=== PATIENT | male | born 1935 | race Caucasian/White ===

== ENCOUNTER 2020-10-03 09:37 | Outpatient (RCR) | payer MEDICARE, BC, SELFPAY ==
[2016-07-26 12:43] VITALS: BMI 31.7
== END 2020-10-03 23:59 ==
LOC: IMMUN 09:37
PROVIDERS: Visit Provider Family Medicine
DX: Z23 Encounter for immunization (principal)
CPT/HCPCS: 0011A; 0012A; 91301

== ENCOUNTER → 2023-03-30 | Outpatient (CLI) | payer OTHER, SELFPAY ==
--- NOTE | 2023-03-30 13:53 | CT_ITS ---
INDICATION: AORTIC ANEURYSM EXAMINATION: CT CHEST WITHOUT CONTRAST - CT Chest W/O Contrast Injection TECHNIQUE: Helically acquired images were obtained of the chest. A radiation dose optimization technique was used for this scan. Sagittal coronal reformatted images are performed. IV Contrast dosage and agent: None. COMPARISON: None. FINDINGS: LUNGS, PLEURA AND LARGE AIRWAYS: There is no focal consolidation pleural effusion pulmonary edema or pneumothorax. There is minimal right lower lobe atelectasis. No pleural effusion or thickening. No pneumothorax. THYROID: No thyroid lesions. HEART AND PERICARDIUM: There is mild cardiac enlargement. There is trace coronary calcification. No pericardial effusion. CORONARY ARTERIES: Coronary artery calcification is seen. VESSELS: The ascending thoracic aorta measures 4 x 4.3 cm and is tortuous. The descending thoracic aorta measures 3.2 x 2.4 cm. MEDIASTINUM AND ERICH: There are coarse calcifications within the AP window and in the left hilum. Aorta is tortuous as it enters the hiatus. Esophagus is unremarkable. No hiatal hernia. UPPER ABDOMEN: There is a visualized 3 mm gallstone. There is calcification within the spleen compatible granulomatous disease. There is a fatty infiltrated atrophied appearance of the pancreatic tissue. BONES: There is multilevel degenerative change within the thoracolumbar spine. There is multilevel disc space narrowing osteophyte formation. CT/Chest without Contrast IMPRESSION: Nonspecific lower lobe atelectasis. Mild aneurysmal dilatation of the ascending thoracic aorta measuring 4.4 x 4.3 cm. Minimal coronary calcification. Evidence of old granulomatous disease. Partially visualized cholelithiasis. Electronically Signed: Shazia Vivar MD at 1:21 EDT ,
== END | disposition home or self-care (01) ==
LOC: CT 13:47
DX: I71.9 Aortic aneurysm of unspecified site, without rupture (principal)
CPT/HCPCS: 71250

== ENCOUNTER → 2024-04-02 | Outpatient (CLI) | payer OTHER, SELFPAY ==
--- NOTE | 2024-04-02 13:09 | CT_ITS ---
STUDY: CT CHEST WITHOUT CONTRAST REASON FOR EXAM: Male, 88 years old. SCREENING THORACIC AORTIC ANEURYSM RADIATION DOSAGE (If Supplied By Facility): CTDIvol = ( 16.95 ) mGy, DLP = ( 656.49 ) mGycm TECHNIQUE: Transaxial imaging was performed without the administration of intravenous contrast material. Multiplanar coronal and sagittal images were reformatted. Individualized dose optimization techniques were used for this CT. COMPARISON: Comparison is made with prior study dated March 30, 2023. FINDINGS: CHEST Minimal scarring at the right lung base. There is no demonstrated pleural abnormality. There are calcifications of the coronary arteries. Calcified lymph nodes in the aortopulmonary window. Calcified left hilar lymph nodes. Normal unenhanced pulmonary arteries. The root of the ascending thoracic aorta measures 46.5 mm. This has increased slightly as compared to prior study. Atherosclerotic plaque formation of the aortic arch. There are multi-level degenerative changes of the thoracic spine. Calcified splenic granulomas. Contracted gallbladder. CT/Chest without Contrast IMPRESSION: The root of the ascending thoracic aorta measures 46.5 mm. This has progressed slightly as compared to prior study. Electronically Signed: Dereje Telles MD at 14:59 EDT ,
== END | disposition home or self-care (01) ==
LOC: CT 13:07
DX: I71.20 Thoracic aortic aneurysm, without rupture, unspecified (principal)
CPT/HCPCS: 71250

== ENCOUNTER 2024-08-28 13:38 | Inpatient (IN) | payer OTHER, SELFPAY ==
[2024-08-28] VITALS (8 sets, daily range): BP systolic 145–176; BP diastolic 91–103; PULSE 58–74; RESP 16–18; TEMP 35.7–36.8; O2SAT 93–95; BMI 33.0; BMI 31.8
--- NOTE | 2024-08-28 13:49 | CT_ITS ---
We are attempting to reach an attending provider to discuss findings. An addendum with communication details will be sent when the communication is complete. EXAM: CT HEAD WITHOUT INTRAVENOUS CONTRAST CLINICAL INDICATION: Neuro deficit, acute, stroke suspected TECHNIQUE: Multiple axial images were obtained of the head without intravenous contrast. This CT exam was performed using one or more of the following dose reduction techniques: automated exposure control, adjustment of the mA and/or kV according to patient size, and/or use of iterative reconstruction technique. RADIATION DOSE: CTDIvol = 47.06 mGy, DLP = 943.26 mGy-cm COMPARISON: No relevant prior studies available. FINDINGS: BRAIN AND EXTRA-AXIAL SPACES: Unremarkable. No intra- or extra-axial hemorrhage. No evidence of acute infarct. No intracranial mass or mass effect. There is preservation of the galindo/white matter interface. Posterior fossa structures are unremarkable. Ventricles are appropriate for age. No hydrocephalus. Basal cisterns are patent. BONES/JOINTS: Unremarkable. No discrete lytic or blastic abnormalities. SINUSES: Unremarkable as visualized. Clear. MASTOID AIR CELLS: Unremarkable. Clear. ORBITS: Visualized globes, extraocular muscles, optic nerves and retrobulbar fat appear unremarkable. CT/STROKE Brain/Head without Cont IMPRESSION: 1. No CT evidence of intracranial bleeding, acute ischemic infarct or acute intracranial abnormality at this time. 2. Total ASPECTS score: 10/10. Electronically Signed: Deric Lockwood MD at 14:02 EST ,
--- NOTE | 2024-08-28 13:49 | EKG12_ITS ---
Test Reason : STORKE ALERT Blood Pressure : */* mmHG Vent. Rate : 74 BPM Atrial Rate : 74 BPM P-R Int : 152 ms QRS Dur : 114 ms QT Int : 438 ms P-R-T Axes : 51 65 57 degrees QTcB Int : 486 ms Sinus rhythm with Premature atrial complexes Incomplete right bundle branch block Prolonged QT Abnormal ECG Confirmed by RICHAR CHE, ANAMIKA ([id number]), sports editor MAXIM DOSHI ([id number]) on 08/30/2024 2:16:04 PM Referred By: Confirmed By: ANAMIKA MCQUEEN MD
--- NOTE | 2024-08-28 13:50 | CT_ITS ---
We are attempting to reach an attending provider to discuss findings. An addendum with communication details will be sent when the communication is complete. STUDY: CTA HEAD AND NECK WITH CONTRAST REASON FOR EXAM: Male, 88 years old. Neuro deficit, acute, stroke suspected RADIATION DOSAGE (If Supplied By Facility): CTDIvol = ( 22.44 ) mGy, DLP = ( 963.36 ) mGycm TECHNIQUE: CT angiography was performed with a multi-detector CT scanner. Data acquisition was obtained from the skull base through the vertex following intravenous administration of 100 mL of Isovue-370. MIP images were reconstructed from the axial data set. Post-processing of the angiographic images was performed, with multiplanar reformation and 3D reconstruction. Individualized dose optimization techniques were used for this CT. The protocol utilizes one or more of the following dose reduction techniques: automated exposure control, adjustment of mA and/or kV according to patient size, and/or use of iterative reconstruction technique. COMPARISON: No relevant priors. FINDINGS: Normal bilateral petrous carotid arteries. Normal right cavernous carotid artery with a normal supraclinoid bifurcation. Normal left cavernous carotid artery with a normal supraclinoid bifurcation. Normal right A1 segment of the anterior cerebral artery. Normal left A1 segment of the anterior cerebral artery. Normal intact anterior communicating artery (ACOM). Normal bilateral A2 segments of the anterior cerebral arteries. Normal right M1 and M2 segments of the middle cerebral arteries, with a normal M1 bifurcation. Normal left M1 and M2 segments of the middle cerebral arteries, with a normal M1 bifurcation. Normal right posterior communicating artery (PCOM). origin of the left HALL MANAGER off the left internal carotid artery rather than a widely patent left posterior communicating artery (PCOM). Normal bilateral vertebral arteries. Right vertebral artery is markedly hypoplastic and terminates directly into the right PICA (posterior inferior cerebellar artery). Normal basilar artery with a normal basilar bifurcation. The visualized bilateral superior cerebellar (SCA) arteries are normal. Hypoplastic right P1 segment. Developmentally absent left P1 segment. Normal bilateral P2 and visualized P3 segments of the posterior cerebral arteries. There is no demonstrated aneurysm of the kash[place] of [place]. There is no demonstrated abnormality of the visualized brain. AORTIC ARCH: Normal visualized aortic arch. Normal origins of the brachiocephalic, left common carotid, and left subclavian arteries. RIGHT CAROTID ARTERIES: Normal right common carotid artery (CCA). Normal right carotid bulb. Normal origin of the right internal carotid (ICA) artery without a hemodynamically significant stenosis. Normal visualized cervical portion of the right internal carotid artery. Normal origin of the right external carotid artery (ECA). LEFT CAROTID ARTERIES: Normal left common carotid artery (CCA). Normal left carotid bulb. Normal origin of the left internal carotid (ICA) artery without a hemodynamically significant stenosis. Normal visualized cervical portion of the left internal carotid artery. Normal origin of the left external carotid artery (ECA). VERTEBRAL ARTERIES: Normal bilateral vertebral arteries. Hypoplastic right vertebral artery terminates directly into the right PICA. CT/STROKE CTA Head AND Neck W/Con IMPRESSION: Normal CTA Head and neck with contrast. Electronically Signed: Deric Lockwood MD at 14:18 EST ,
--- NOTE | 2024-08-28 13:51 | ED.VIS.STROK ---
HPI History of Present Illness Chief Complaint: Dizziness Informant: patient Narrative Narrative: 88-year-old male presenting to triage with dizziness that feels like spinning along with some nausea and some fuzzy vision intermittently but no vision loss that started after getting up this morning, after he ate breakfast, he estimates around 8 AM, he was fine as he awoke and got out of bed. Denies any recent illness. Denies recent injury or fall. Denies a major issue with walking but a little off he states. No earache or tinnitus. No headache. PFSH PFS Medical History (Updated 08/28/24 @ 14:43 by Galilea Mccallum) Non-smoker Stroke/cerebrovascular accident Prostate atrophy Home Medications ?Medication ?Instructions ?Recorded ?Last Taken ?Type tamsulosin 0.4 mg capsule 0.4 mg PO DAILY 07/15/15 Unknown History rivaroxaban 10 mg tablet (Xarelto) 10 mg PO DAILY@0600 ##15 07/28/16 Unknown Rx cholecalciferol (vitamin D3) 25 25 mcg PO DAILY 08/28/24 Unknown History mcg (1,000 unit) capsule (Vitamin D3) Allergy/AdvReac Type Severity Reaction Status Date / Time cephalexin Allergy Unknown Verified 08/28/24 13:39 ibuprofen Allergy Other Verified 08/28/24 13:39 Surgical History (Updated 08/28/24 @ 14:03 by Noemy Baugh) History of hip replacement History of knee replacement Social History Smoking Status: Never smoker ROS ROS ED Constitutional Constitutional ED: Denies chills or fever(s) Eyes Eyes: Reports change in vision bilateral (See HPI, a little fuzzy/blurry at times but no vision loss); Denies diplopia ENT ENT ED: Reports dizziness; Denies ear pain, rhinorrhea or sore throat Cardiovascular Cardiovascular: Denies chest pain or palpitations Respiratory/Chest Respiratory/Chest: Denies cough or dyspnea Gastrointestinal Gastrointestinal: Reports nausea; Denies abdominal pain, diarrhea or vomiting Genitourinary Genitourinary ED: Denies dysuria or hematuria Musculoskeletal Musculoskeletal: Denies back pain or neck pain Integumentary Denies abscess or rash Neurologic Neurologic: Reports as per HPI and dizziness; Denies headache(s), paresthesias or weakness Psychiatric Psychiatric: Denies anxiety or suicidal thoughts EXAM Physical Exam Const Vital Signs: 08/28/24 13:39 08/28/24 13:49 08/28/24 14:09 Temperature 96.3 F L Temperature Source Temporal Pulse Rate 74 72 Respiratory Rate 18 18 Blood Pressure 172/100 H 176/103 H Blood Pressure Mean 124 127 Pulse Ox 95 93 Oxygen Delivery Method Room Air Room Air Room Air 08/28/24 14:19 Temperature Temperature Source Pulse Rate 72 Respiratory Rate 16 Blood Pressure 172/103 H Blood Pressure Mean 126 Pulse Ox 94 Oxygen Delivery Method Room Air Positive well nourished and well developed General Appearance ED: well developed and NAD HEENT Reports moist mucous membranes normocephalic and atraumatic Eyes PERRL and EOMs intact bilaterally Neck full ROM and supple Resp normal respiratory effort and clear to auscultation bilaterally Cardio regular rate and regular rhythm GI non-tender and non-distended Auscultation: normoactive bowel sounds Palpation: soft Back/Spine no CVA tenderness General Back: other FROM Extremity normal to inspection General Extremety ED: Negative for edema, pulses abnormal or tenderness General Extremity: Negative for edema or pulses abnormal Neuro oriented x3, CN's II-XII intact bilaterally and no sensory deficits noted Neuro Narrative: Normal imvyhp-ls-uqri and drfp-zx-bbry bilaterally. No focal deficits. Normal speech. See a NIHSS which is 0. Skew test is negative. Jolt/head impulse test is difficult to interpret, he seems to have a catch-up saccade, however the patient has trouble relaxing his head and neck to allow me to do the movements passively. There is no direction-changing nystagmus. Sensorium / Orientation: awake and alert Motor Exam: strength 5/5 throughout Psych mental status grossly normal Skin no rashes or lesions noted and no wounds NIHSS NIHSS Initial: 1a Level of Consciousness: 0 1b LOC Questions (Score 2 if aphasic/stupor): 0 1c LOC Commands (Only score 1st attempt): 0 2 Best Gaze (If aphasic, use reflexive mvmts.): 0 3 Visual: 0 4 Facial Palsy: 0 5 Motor Arm Right (UN = amputation/fusion): 0 5 Motor Arm Left: 0 6 Motor Leg Right: 0 6 Motor Leg Left: 0 7 Limb ataxia (Only + if out of proportion): 0 8 Sensory (Aphasia/stupor=0 or 1, coma=2): 0 9 Best Language: 0 10 Dysarthria (mute, coma=2, intubated=UN): 0 11 Extinction and Inattention (only scored if +): 0 Total Score: 0 MDM MDM MDM Narrative Medical decision making narrative: Stroke alert called out of triage. I reviewed the CT images on my interpretation no bleed, and no LVO on the CTA. Radiology was in agreement I spoke with radiologist about both of these scans. The EKG shows a sinus rhythm no A-fib. Patient still having mild vertigo when he is remaining still, but worse if he changes position. Discussed with Dr. Diaz stroke neurology who agrees with inpatient workup. Discussed with the patient and his son. While remaining still he is feeling a little better, rivaroxaban is on his medication list he is not taking that, the only prescription medication that he takes his tamsulosin. I advised him of that with his elevated blood pressure and symptoms this is concerning for central etiology of disequilibrium. He prefers not to stay in hospital but he is amenable to it given the risks of going home. Lab Data Attestation: I reviewed the patient's lab results. Labs: Laboratory Results - last 24 hr 08/28/24 08/28/24 13:49 13:51 WBC 8.0 RBC 4.78 Hgb 14.9 Hct 46.3 MCV 96.9 H MCH 31.2 MCHC 32.2 RDW Std Deviation 45.2 H RDW Coeff of Carlos 12.6 Plt Count 261 MPV 8.7 Immature Gran % (Auto) 0.100 Neut % (Auto) 60.1 Lymph % (Auto) 27.7 [place] % (Auto) 9.7 Eos % (Auto) 1.9 Baso % (Auto) 0.5 Absolute Neuts (auto) 4.8 Absolute Lymphs (auto) 2.20 Nucleated RBC % 0 PT 13.2 INR 1.0 APTT 31.1 Sodium 139 Potassium 4.3 Chloride 108 H Carbon Dioxide 28.0 Anion Gap 3 L BUN 24 H Creatinine 1.33 H Estim Creat Clear Calc 44.20 Est GFR (MDRD) Af Amer 65 Est GFR (MDRD) Non-Af 54 L BUN/Creatinine Ratio 18.0 Glucose 124 H Calcium 8.9 Troponin I High Sens 13 POC Glucose 121 H Radiography Diagnostic Testing: Clinical Impression(s) from Imaging Studies Brain CT 08/28/24 13:[address]: [address] evidence of intracranial bleeding, acute ischemic infarct or acute intracranial abnormality at this time. 2. Total ASPECTS score: 10/10. Electronically Signed: Deric Lockwood MD at 14:02 EST , ADDENDUM: 08/28/24 1412 IMPRESSION: 1. No CT evidence of intracranial bleeding, acute ischemic infarct or acute intracranial abnormality at this time. 2. Total ASPECTS score: 10/10. N.B. : The above Results were Read Back by Deric Lockwood MD to Usman Barrientos MD, and understanding confirmed on 08/28/2024 14:05:45 (ET). Electronically Signed: Deric Lockwood MD at 14:02 EST Reading Location ID and State: [facility] / [place] , Service support , Head/Neck CTA 08/28/24 13:50 IMPRESSION: Normal CTA Head and neck with contrast. Electronically Signed: Deric Lockwood MD at 14:18 EST Reading Location ID and State: [facility] / [place] , Service support , ADDENDUM: 08/28/24 1426 IMPRESSION: Normal CTA Head and neck with contrast. N.B. : The above Results were Read Back by Deric Lockwood MD to Usman Barrientos MD, and understanding confirmed on 08/28/2024 14:20:04 (ET). Electronically Signed: Deric Lockwood MD at 14:18 EST , Rhythm Strip Rhythm Strip: Sinus Rhythm Rate: 75 Ectopy: None EKG Initial EKG: Attestation: I personally reviewed and interpreted this EKG as follows: Interpretation: Sinus Rhythm and No Acute Injury Pattern Comments: RSR', narrow QRS Prior EKG tracings: not available for review Prior: No Prior Management Discussion w/another healthcare provider: Hospitalist, Garnisher (Stroke neurology Dr. Diaz) and Radiologist Stroke Documentation Questions Stroke Team Activated: Yes (By nursing, I saw the patient in triage) Was Patient considered for Endovascular Intervention?: No-CTA negative, determined not to be an endovascular candidate IV Thrombolytic Administered: No (Out of timing window) Critical Care Time Critical Care Time: Yes Critical care time (excluding procedures): 30-74 minutes (35 min), Including time spent:, Discussing w/Patient &/or Family/Supervisor Dumping, Discussing w/Consultants, Arranging Admission or Transfer and Performing Direct Patient Care at Bedside Discharge Plan Dx/Rx/DC Orders Clinical Impression: Vertigo, central Disposition Disposition: Acute Care Hospital [facility]
[2024-08-28 13:57] LABS: Absolute Neutrophil Count 4.8 X10^3/uL (2.0-7.7); Basophil# 0.04 X10^3/uL; Basophil% 0.5 % (0-1); Eosinophil# 0.15 X10^3/uL; Eosinophils% 1.9 % (0-5); Hematocrit 46.3 % (40-54); Hemoglobin 14.9 g/dL (13.0-16.5); Lymphocyte % 27.7 % (19-41); Mean Corp Hgb Conc 32.2 g/dL (32-36); Mean Corpuscular Hgb 31.2 pg (27.0-32.0); Mean Corpuscular Volume 96.9 fL (80-94); Mean Platelet Vol. 8.7 fl (6.2-12.0); Monocyte# 0.77 X10^3/uL; Monocyte% 9.7 % (0-10); NRBC Flagged by Analyzer 0 % (0-5); Neutrophil # 4.78 X10^3/uL (2.7-7.7); Neutrophil % 60.1 % (47-70); Platelet Count 261 K/mm3 (150-450); RBC Distribution Width CV 12.6 % (11.6-14.6); RBC Distribution Width SD 45.2 fl (35.1-43.9); Red Blood Count 4.78 M/mm3 (4.6-6.2)
[2024-08-28 14:06] LABS: Partial Thromboplast Time 31.1 Seconds (24.1-36.2); Prothrombin Time (Protime)PT. 13.2 SECONDS (11.7-14.9)
[2024-08-28] MEDS: Ondansetron 4 MG/2 ML Vial IV (14:07)
--- NOTE | 2024-08-28 14:13 | ED.RN ---
first call to [facility]2 second call to [facility] 1400 - waiting for neurologist beam in
[2024-08-28 14:14] LABS: Anion Gap 3 (5-15); BUN 24 mg/dL (7-18); Calcium,Total 8.9 mg/dL (8.5-10.1); Chloride 108 mmol/L (98-107); Creatinine, Serum 1.33 mg/dL (0.70-1.30); EST Glomerular Filtration Rate 54 mL/min (>60); Est Glom Filt Rate - Afr Amer 65 mL/min (>60); Glucose 124 mg/dL (74-106); Potassium 4.3 mmol/L (3.5-5.1); Sodium Level 139 mmol/L (136-145); Troponin-I HS 13 pg/mL (3.0-78.0)
[2024-08-28 14:15] LABS: Bedside Glucose 121 mg/dL (74-106)
--- NOTE | 2024-08-28 14:15 | ED.RN ---
dr nelson talked with [facility] neurology, not beaming in physician phone consult
--- NOTE | 2024-08-28 15:15 | PCM.HP.STD ---
HPI - General General Date of Admission: 08/28/24 Date of Service: 08/28/24 Chief Complaint: Dizziness HPI Narrative OVIDIO LOU, is a 88 M with past medical history of BPH who presents presented to the ED with concerns regarding ongoing dizziness since this morning around 8 AM. This morning, patient had sensation of the room spinning around him with some lightheadedness since waking up. Does not have a history of had some associated nausea, no vomiting and associated bloating. No history of constipation, no history of prior syncopal episodes, does not smoke, does not drink. Baseline status: Follows up at the [place] for most of [place] care Previously was diagnosed with hypertension but has not been started on any medications at Does not follow any lifestyle changes for blood pressure At the time of presentation in the ED, blood pressure was 172/100, with a pulse of 74, temperature 96.3, respiratory rate 18, pulse saturation 95% WBC 8.0, hemoglobin 14.9, platelet 261, INR 13.2, potassium 4.3, sodium 139, BUN 24, creatinine 1.3, glucose 124. CTA head and neck was normal [facility] Medical History (Updated 08/28/24 @ 14:43 by Galilea Mccallum) Non-smoker Stroke/cerebrovascular accident Prostate atrophy Home Medications ?Medication ?Instructions ?Recorded ?Last Taken ?Type tamsulosin 0.4 mg capsule 0.4 mg PO DAILY 07/15/15 Unknown History rivaroxaban 10 mg tablet (Xarelto) 10 mg PO DAILY@0600 ##15 07/28/16 Unknown Rx cholecalciferol (vitamin D3) 25 25 mcg PO DAILY 08/28/24 Unknown History mcg (1,000 unit) capsule (Vitamin D3) Allergy/AdvReac Type Severity Reaction Status Date / Time cephalexin Allergy Unknown Verified 08/28/24 13:39 ibuprofen Allergy Other Verified 08/28/24 13:39 Surgical History (Updated 08/28/24 @ 14:03 by Noemy Baugh) History of hip replacement History of knee replacement Social History Smoking Status: Never smoker Vital Signs Vital Signs Vital Signs: 08/28/24 13:39 08/28/24 13:49 08/28/24 14:09 Temperature 96.3 F L Temperature Source Temporal Pulse Rate 74 72 Respiratory Rate 18 18 Blood Pressure 172/100 H 176/103 H Blood Pressure Mean 124 127 Pulse Ox 95 93 Oxygen Delivery Method Room Air Room Air Room Air 08/28/24 14:19 08/28/24 14:46 08/28/24 14:59 Temperature 98.2 F Temperature Source Pulse Rate 72 67 66 Respiratory Rate 16 16 16 Blood Pressure 172/103 H 167/91 H 167/91 H Blood Pressure Mean 126 116 116 Pulse Ox 94 94 94 Oxygen Delivery Method Room Air Room Air Weight Weight: 223 lb 9.6 oz Body Mass Index (BMI) 33.0 Physical Exam Const alert and oriented x3 HEENT normocephalic and head/scalp atraumatic Eyes PERRL Neck no lymphadenopathy Resp normal respiratory effort Cardio regular rate GI normal to inspection, nondistended, normoactive bowel sounds Extremity normal to inspection Neuro oriented x3 Results Medical Records Data Attestation: I reviewed the patient's medical records Lab / Micro Data Attestation: I reviewed the patient's lab results. 08/28/24 13:49 08/28/24 13:49 Labs: Laboratory Results - last 24 hr 08/28/24 13:49: WBC 8.0, RBC 4.78, Hgb 14.9, Hct 46.3, MCV 96.9 H, MCH 31.2, MCHC 32.2, RDW Std Deviation 45.2 H, RDW Coeff of Carlos 12.6, Plt Count 261, MPV 8.7, Immature Gran % (Auto) 0.100, Neut % (Auto) 60.1, Lymph % (Auto) 27.7, [place] % (Auto) 9.7, Eos % (Auto) 1.9, Baso % (Auto) 0.5, Absolute Neuts (auto) 4.8, Absolute Lymphs (auto) 2.20, Nucleated RBC % 0, PT 13.2, INR 1.0, APTT 31.1, Sodium 139, Potassium 4.3, Chloride 108 H, Carbon Dioxide 28.0, Anion Gap 3 L, BUN 24 H, Creatinine 1.33 H, Estim Creat Clear Calc 44.20, Est GFR (MDRD) Af Amer 65, Est GFR (MDRD) Non-Af 54 L, BUN/Creatinine Ratio 18.0, Glucose 124 H, Calcium 8.9, Troponin I High Sens 13 08/28/24 13:51: POC Glucose 121 H Rhythm Strip Rhythm Strip: Sinus Rhythm Rate: 75 Ectopy: None Imaging Radiology Impression Brain CT 08/28/24 13:[address]: 1[address] evidence of intracranial bleeding, acute ischemic infarct or acute intracranial abnormality at this time. 2. Total ASPECTS score: 10/10. Electronically Signed: Deric Lockwood MD at 14:02 EST , ADDENDUM: 08/28/24 1412 IMPRESSION: 1. No CT evidence of intracranial bleeding, acute ischemic infarct or acute intracranial abnormality at this time. 2. Total ASPECTS score: 10/10. N.B. : The above Results were Read Back by Deric Lockwood MD to Usman Barrientos MD, and understanding confirmed on 08/28/2024 14:05:45 (ET). Electronically Signed: Deric Lockwood MD at 14:02 EST , Head/Neck CTA 08/28/24 13:50 IMPRESSION: Normal CTA Head and neck with contrast. Electronically Signed: Deric Lockwood MD at 14:18 EST , ADDENDUM: 08/28/24 1426 IMPRESSION: Normal CTA Head and neck with contrast. N.B. : The above Results were Read Back by Deric Lockwood MD to Usman Barrientos MD, and understanding confirmed on 08/28/2024 14:20:04 (ET). Electronically Signed: Deric Lockwood MD at 14:18 EST , Assessment & Plan Assessment/Plan (1) Vertigo, central: PLAN: Plan 88-year-old with history of BPH, hypertension [untreated] presents to the ED with concerns regarding vertigo since this morning. This is the first episode of vertigo that responded to labetalol and Zofran in the ED. At the time of our evaluation patient had no symptoms or signs consistent with any ongoing CVA. #Vertigo -Based on his history, evaluation by ED physicians felt possible reason is central vertigo -Could be TIA versus hypertensive emergency -Symptoms responded to labetalol therapy -Echocardiogram -Admit to PCU for close monitoring of blood pressure and neurological status -Will consider MRI if echocardiogram is negative -PT/OT evaluation for fall risk #Hypertension -Will start on tab amlodipine 10 mg during inpatient stay -Outpatient follow-up with PCP for further monitoring of blood pressure -Patient education regarding lifestyle changes #BPH -Continue home medications #DVT -Encourage mobilization -Enoxaparin injection 40 mg subcu
--- NOTE | 2024-08-28 15:41 | CDU_ITS ---
Reason For Study: TIA Rt. Velocities/BP Lt. Velocities/BP Prox CCA 50/10 cm/sec. Prox CCA 60/17 cm/sec. Mid CCA 40/10 cm/sec. Mid CCA 74/19 cm/sec. Dist CCA 29/9 cm/sec. Dist CCA 57/15 cm/sec. Prox ICA 43/14 cm/sec. Prox ICA 51/13 cm/sec. Mid ICA 55/19 cm/sec. Mid ICA 33/13 cm/sec. Dist ICA 46/18 cm/sec. Dist ICA 44/17 cm/sec. Rt. ICA/CCA = 1.4. Lt. ICA/CCA = 0.7. Prox ECA 66/12 cm/sec. Prox ECA 51/0 cm/sec. Rt. Vert. 34/8 cm/sec. Lt. Vert. 33/7 cm/sec. Right Extracranial There is intimal thickening but no significant atherosclerotic plaque noted in the right common carotid artery. There is intimal thickening but no significant atherosclerotic plaque noted in the right internal carotid artery. There is intimal thickening but no significant atherosclerotic plaque noted in the right external carotid artery. Antegrade flow is noted in the right vertebral artery. Left Extracranial There is intimal thickening but no significant atherosclerotic plaque noted in the left common carotid artery. There is intimal thickening but no significant atherosclerotic plaque noted in the left internal carotid artery. There is intimal thickening but no significant atherosclerotic plaque noted in the left external carotid artery. Antegrade flow is noted in the left vertebral artery. Procedure Carotid Duplex [id number]. This is a Carotid Duplex examination using B-mode, color flow and specral Doppler. Exam performed portable in patient room. VL/Carotid Duplex Ultrasound Interpretation Summary Normal right extracranial internal carotid. Normal left extracranial internal carotid. Patent and antegrade vertebrals bilaterally. Ordering Physician: Thea Valdez Performed By: Hermelinda Melton, RDCS, RVT
[2024-08-28] MEDS: Psyllium 1 PACKET PO (16:34)
[2024-08-28] MEDS: amLODIPine 10 MG Tablet PO (16:35)
[2024-08-29 04:00] VITALS: BP 143/90; PULSE 68; RESP 18; TEMP 36.4; O2SAT 94
[2024-08-29 06:37] LABS: Absolute Lymphocyte Count 1.84 X10^3/uL (0.83-4.51); Absolute Neutrophil Count 4.3 X10^3/uL (2.0-7.7); Basophil# 0.03 X10^3/uL; Basophil% 0.4 % (0-1); Eosinophil# 0.27 X10^3/uL; Eosinophils% 3.7 % (0-5); Hematocrit 42.9 % (40-54); Hemoglobin 13.9 g/dL (13.0-16.5); Lymphocyte # 1.84 X10^3/ul (0.83-4.51); Lymphocyte % 25.4 % (19-41); Mean Corp Hgb Conc 32.4 g/dL (32-36); Mean Corpuscular Hgb 31.2 pg (27.0-32.0); Mean Corpuscular Volume 96.2 fL (80-94); Mean Platelet Vol. 9.1 fl (6.2-12.0); NRBC Flagged by Analyzer 0 % (0-5); Neutrophil # 4.29 X10^3/uL (2.7-7.7); Neutrophil % 59.2 % (47-70); Platelet Count 243 K/mm3 (150-450); RBC Distribution Width CV 12.7 % (11.6-14.6); Red Blood Count 4.46 M/mm3 (4.6-6.2); White Blood Count 7.3 K/mm3 (4.4-11.0)
[2024-08-29 07:31] LABS: ALB/GLOB Ratio 0.9 RATIO (0.9-2.4); AST(SGOT) 25 U/L (15-37); Alanine Aminotransfer ALT/SGPT 19 U/L (16-61); Albumin, Serum 3.4 g/dL (3.2-5.0); Alkaline Phosphatase 81 U/L (45-117); Anion Gap 4 (5-15); BUN 22 mg/dL (7-18); BUN/Creat Ratio 18.3 RATIO (10-20); Calcium,Total 8.2 mg/dL (8.5-10.1); Chloride 107 mmol/L (98-107); EST Glomerular Filtration Rate 61 mL/min (>60); Est Glom Filt Rate - Afr Amer 73 mL/min (>60); Estimated Creatinine Clearance 48.11 ml/min; Globulin 3.6 g/dL (2.2-4.2); Glucose 99 mg/dL (74-106); Magnesium 2.3 mg/dL (1.6-2.6); Potassium 3.9 mmol/L (3.5-5.1); Sodium Level 137 mmol/L (136-145)
[2024-08-29 08:38] LABS: International Normalized Ratio 1.1; Prothrombin Time (Protime)PT. 14.6 SECONDS (11.7-14.9)
--- NOTE | 2024-08-29 08:47 | PN.HOSP_ITS ---
Reason for Visit Reason for Visit: Diagnoses Vertigo of central origin (08/28/24) Objective Data Objective Data Vital Signs: Vital Signs Temp Pulse Resp BP Pulse Ox O2 Del Method 97.6 F L 68 18 143/90 H 94 Room Air 08/29/24 04:00 08/29/24 04:00 08/29/24 04:00 08/29/24 04:00 08/29/24 04:00 08/29/24 04:00 Oxygen Delivery Method Room Air Weight: 215 lb 6.266 oz Body Mass Index (BMI) 31.8 Intake & Output: Intake and Output for Last 24 Hours 08/27/24 08/28/24 08/29/24 23:59 23:59 23:59 Intake Total 120 / 120 Balance 120 / 120 Lab / Micro Data 08/29/24 05:28 08/29/24 05:28 Labs: Laboratory Results - last 24 hr 08/28/24 13:49: WBC 8.0, RBC 4.78, Hgb 14.9, Hct 46.3, MCV 96.9 H, MCH 31.2, MCHC 32.2, RDW Std Deviation 45.2 H, RDW Coeff of Carlos 12.6, Plt Count 261, MPV 8.7, Immature Gran % (Auto) 0.100, Neut % (Auto) 60.1, Lymph % (Auto) 27.7, [place] % (Auto) 9.7, Eos % (Auto) 1.9, Baso % (Auto) 0.5, Absolute Neuts (auto) 4.8, Absolute Lymphs (auto) 2.20, Nucleated RBC % 0, PT 13.2, INR 1.0, APTT 31.1, Sodium 139, Potassium 4.3, Chloride 108 H, Carbon Dioxide 28.0, Anion Gap 3 L, B UN 24 H, Creatinine 1.33 H, Estim Creat Clear Calc 44.20, Est GFR (MDRD) Af Amer 65, Est GFR (MDRD) Non-Af 54 L, BUN/Creatinine Ratio 18.0, Glucose 124 H, Calcium 8.9, Troponin I High Sens 13 08/28/24 13:51: POC Glucose 121 H 08/29/24 05:28: WBC 7.3, RBC 4.46 L, Hgb 13.9, Hct 42.9, MCV 96.2 H, MCH 31.2, MCHC 32.4, RDW Std Deviation 45.0 H, RDW Coeff of Carlos 12.7, Plt Count 243, MPV 9.1, Immature Gran % (Auto) 0.300, Neut % (Auto) 59.2, Lymph % (Auto) 25.4, [place] % (Auto) 11.0 H, Eos % (Auto) 3.7, Baso % (Auto) 0.4, Absolute Neuts (auto) 4.3, Absolute Lymphs (auto) 1.84, Nucleated RBC % 0, PT 14.6, INR 1.1, Sodium 137, Potassium 3.9, Chloride 107, Carbon Dioxide 26.0, Anion Gap 4 L, BUN 22 H, Creatinine 1.20, Estim Creat Clear Calc 48.11, Est GFR (MDRD) Af Amer 73, Est GFR (MDRD) Non-Af 61, BUN/Creatinine Ratio 18.3, Glucose 99, Calcium 8.2 L, Phosphorus 3.0, Magnesium 2.3, Total Bilirubin 0.70, Direct Bilirubin 0.20, AST 25, ALT 19, Alkaline Phosphatase 81, Total Protein 7.0, Albumin 3.4, Globulin 3.6, Albumin/Globulin Ratio 0.9, TSH 4.730 H Radiography Diagnostic Testing: Radiology Impression Brain CT 08/28/24 13:49 IMPRESSION: 1. No CT evidence of intracranial bleeding, acute ischemic infarct or acute intracranial abnormality at this time. 2. Total ASPECTS score: 10/10. Electronically Signed: Deric Lockwood MD at 14:02 EST Reading Location ID and State: [facility] / [place] , Service support , ADDENDUM: 08/28/24 1412 IMPRESSION: 1. No CT evidence of intracranial bleeding, acute ischemic infarct or acute intracranial abnormality at this time. 2. Total ASPECTS score: 10/10. N.B. : The above Results were Read Back by Deric Lockwood MD to Usman Barrientos MD, and understanding confirmed on 08/28/2024 14:05:45 (ET). Electronically Signed: Deric Lockwood MD at 14:02 EST Reading Location ID and State: [facility] / [place] , Service support , Head/Neck CTA 08/28/24 13:50 IMPRESSION: Normal CTA Head and neck with contrast. Electronically Signed: Deric Lockwood MD at 14:18 EST , ADDENDUM: 08/28/24 1426 IMPRESSION: Normal CTA Head and neck with contrast. N.B. : The above Results were Read Back by Deric Lockwood MD to Usman Barrientos MD, and understanding confirmed on 08/28/2024 14:20:04 (ET). Electronically Signed: Deric Lockwood MD at 14:18 EST Reading Location ID and State: [facility] / [place] , Service support , Rhythm Strip Rhythm Strip: Sinus Rhythm Rate: 75 Ectopy: None Assessment & Plan Assessment/Plan (1) Vertigo, central: PLAN: Plan 88-year-old with history of BPH, hypertension [untreated] presents to the ED with concerns regarding vertigo since this morning. This is the first episode of vertigo that responded to labetalol and Zofran in the ED. At the time of our evaluation patient had no symptoms or signs consistent with any ongoing CVA. #Vertigo -Based on his history, evaluation by ED physicians felt possible reason is central vertigo -Could be TIA versus hypertensive emergency -Symptoms responded to labetalol therapy -Echocardiogram -Admit to PCU for close monitoring of blood pressure and neurological status -Will consider MRI if echocardiogram is negative -PT/OT evaluation for fall risk #Hypertension -Will start on tab amlodipine 10 mg during inpatient stay -Outpatient follow-up with PCP for further monitoring of blood pressure -Patient education regarding lifestyle changes #BPH -Continue home medications #DVT -Encourage mobilization -Enoxaparin injection 40 mg subcu
[2024-08-29 08:49] VITALS: BP 126/82; BP 141/86; PULSE 73; PULSE 80
[2024-08-29 09:30] VITALS: BP 141/86; PULSE 73; RESP 18; TEMP 36.2; O2SAT 92
[2024-08-29] MEDS: amLODIPine 10 MG Tablet PO (09:30)
--- NOTE | 2024-08-29 10:02 | DCINST_ITS ---
Discharge Instructions Diet Discharge Diet: 2000 mg Sodium Diet DC O2, CPAP, BIPAP needs Home O2 Discharge instructions: No Dressing / Incision Discharge Activity: Return to Normal Activity Weight Bearing Status: Weight bearing as tolerated Dressing / Incision Call your doctor if you observe: Fever of 101 or Higher, Coldness, Increased Pain, Numbness or Tingling, Change in Color, Inability to urinate, Inability to have a bowel movement, Shortness of breath, Dizziness, Fainting spells, Swelling in the ankles, Chest pain, Prolonged hiccupping, Increased palpitations (irregular heartbeat) and Calf discomfort Follow Up Care When: IN 2 WEEKS Test Results: Test results from this visit will be discussed in further detail at your follow- up appointment, if applicable. Discharge Plan Admission Admit Date/Time: 08/28/24 14:56 Primary Reason for Your Visit: Near syncope Attending Provider: Davion Rodriguez Primary Care Provider: BRIDGETT ODEN Consulting Providers: Thea Valdez Instructions Additional Instructions / Restrictions: Follow-up with the [facility] Orders/Prescriptions Prescriptions: Continued tamsulosin 0.4 MG capsule 0.4 mg PO DAILY Patient Comments: Xarelto 10 MG tablet 10 mg PO DAILY@0600 Qty: 15 0RF cholecalciferol (vitamin D3) [Vitamin D3] 25 mcg (1,000 unit) capsule 25 mcg PO DAILY Referrals / Follow Up: BRIDGETT ODEN [Other] BRIDGETT ODEN [Other] Disposition Disposition (needs filled in before D/C Order can be placed): Home, Self Care
--- NOTE | 2024-08-29 10:11 | DS.PCM_ITS ---
Providers Date of Admission: 08/28/24 Date of Discharge: 08/29/24 Primary Care Physician: BRIDGETT ODEN Reason For Visit: DIZZINESS Diagnosis Discharge Diagnosis (1) Vertigo, central: Status: Acute Code(s): H81.4 - Vertigo of central origin Plan 88-year-old with history of BPH, hypertension [untreated] presents to the ED with concerns regarding vertigo since this morning. This is the first episode of vertigo that responded to labetalol and Zofran in the ED. At the time of our evaluation patient had no symptoms or signs consistent with any ongoing CVA. #Vertigo/dizziness, possible near syncope all due to accelerated hypertension: Patient is being admitted in PCU. Patient denies any gait instability disequilibrium. Finger-nose and [id number] tests are negative it was mainly nausea, dizziness and vertigo sulfamerazine reason intermittently. Denies any prior history of stroke or seizure or syncope. Symptoms mostly peripheral vertigo. It is resolved. Orthostatic vitals were negative. Patient follows PCP in [facility] in [employer]. 2D echo as an outpatient follow-up with PCP. No other focal symptoms to suspect central vertigo or posterior stroke. If acute concerns then advised outpatient MRI brain. Patient worked fine with no dizziness, unsteady gait or disequilibrium. #Hypertension: In ED, BP was high, BP 172/100. Heart rate normal. Today 141/86. Patient feels fine and wants to go home - #BPH -Continue home medications #DVT -: Patient on Xarelto 10 mg daily, continued Discharge medication reconciliation done. Discharge follow-up instructions completed. Discharge process discussed with the patient and all questions were answered to patient's satisfaction. Follow with PCP in 1 to 2 weeks Total time spent, exact 35 minutes on discharge meds reconciliation, examination, coordination of care with nurses and ancillary staff, review of imaging and blood test and discussion with the patient on follow-up instructions. Medications at Discharge Home Medications tamsulosin 0.4 mg capsule 0.4 mg PO DAILY 07/15/15 rivaroxaban 10 mg tablet (Xarelto) 10 mg PO DAILY@0600 ##15 07/28/16 cholecalciferol (vitamin D3) 25 mcg (1,000 unit) capsule (Vitamin D3) 25 mcg PO DAILY 08/28/24 Physical Exam Narrative Seen and examined. Patient feels normal at his baseline. No dizziness or vertigo or nausea. 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 Blood pressure is controlled Physical exam General: Alert, Oriented x3, Cooperative HEENT: Atraumatic, PERRLA, EOMI, Normocephalic Oral: No Gingival or Mucosal Lesions/ Ulcerations Neck: Supple, No JVD, Negative Carotid Bruits Chest wall/Lungs: Air entry diminished in bilateral lung bases. No crepitation/rhonchi Cardiovascular: Regular rate, Regular Rhythm, Normal S1, Normal S2, No M/G/R Abdomen: Bowel Sounds Present, Soft, Non Tender, Non-Distended : No dysuria. No renal angle tenderness. No suprapubic tenderness. Extremities: No edema, Capillary Refill Less than 3 Seconds Skin: No rashes, No breakdown Musculoskeletal: No Tenderness to Palpation of Joints or Extremities Neurological: Cranial nerves II-XII grossly intact, DTR 2+/4. No acute focal neurological deficit. Psych/Mental Status: Normal Affect, Appropriate. Weight / BMI Weight Weight: 215 lb 6.266 oz Body Mass Index (BMI) 31.8 ABG / Lab / Microbiology Data 08/29/24 05:28 08/29/24 05:28 Laboratory: Laboratory Results - last 24 hr 08/28/24 13:49: WBC 8.0, RBC 4.78, Hgb 14.9, Hct 46.3, MCV 96.9 H, MCH 31.2, MCHC 32.2, RDW Std Deviation 45.2 H, RDW Coeff of Carlos 12.6, Plt Count 261, MPV 8.7, Immature Gran % (Auto) 0.100, Neut % (Auto) 60.1, Lymph % (Auto) 27.7, [place] % (Auto) 9.7, Eos % (Auto) 1.9, Baso % (Auto) 0.5, Absolute Neuts (auto) 4.8, Absolute Lymphs (auto) 2.20, Nucleated RBC % 0, PT 13.2, INR 1.0, APTT 31.1, Sodium 139, Potassium 4.3, Chloride 108 H, Carbon Dioxide 28.0, Anion Gap 3 L, B UN 24 H, Creatinine 1.33 H, Estim Creat Clear Calc 44.20, Est GFR (MDRD) Af Amer 65, Est GFR (MDRD) Non-Af 54 L, BUN/Creatinine Ratio 18.0, Glucose 124 H, Calcium 8.9, Troponin I High Sens 13 08/28/24 13:51: POC Glucose 121 H 08/29/24 05:28: WBC 7.3, RBC 4.46 L, Hgb 13.9, Hct 42.9, MCV 96.2 H, MCH 31.2, MCHC 32.4, RDW Std Deviation 45.0 H, RDW Coeff of Carlos 12.7, Plt Count 243, MPV 9.1, Immature Gran % (Auto) 0.300, Neut % (Auto) 59.2, Lymph % (Auto) 25.4, [place] % (Auto) 11.0 H, Eos % (Auto) 3.7, Baso % (Auto) 0.4, Absolute Neuts (auto) 4.3, Absolute Lymphs (auto) 1.84, Nucleated RBC % 0, PT 14.6, INR 1.1, Sodium 137, Potassium 3.9, Chloride 107, Carbon Dioxide 26.0, Anion Gap 4 L, BUN 22 H, Creatinine 1.20, Estim Creat Clear Calc 48.11, Est GFR (MDRD) Af Amer 73, Est GFR (MDRD) Non-Af 61, BUN/Creatinine Ratio 18.3, Glucose 99, Calcium 8.2 L, Phosphorus 3.0, Magnesium 2.3, Total Bilirubin 0.70, Direct Bilirubin 0.20, AST 25, ALT 19, Alkaline Phosphatase 81, Total Protein 7.0, Albumin 3.4, Globulin 3.6, Albumin/Globulin Ratio 0.9, TSH 4.730 H Radiography Diagnostic Testing: Radiology Impression Brain CT 08/28/24 13:49 IMPRESSION: 1. No CT evidence of intracranial bleeding, acute ischemic infarct or acute intracranial abnormality at this time. 2. Total ASPECTS score: 06/14. Electronically Signed: Deric Lockwood MD at 14:02 EST , ADDENDUM: 08/28/24 8517 IMPRESSION: 1. No CT evidence of intracranial bleeding, acute ischemic infarct or acute intracranial abnormality at this time. 2. Total ASPECTS score: 06/14. N.B. : The above Results were Read Back by Deric Lockwood MD to Usman Barrientos MD, and understanding confirmed on 08/28/2024 14:05:45 (ET). Electronically Signed: Deric Lockwood MD at 14:02 EST , Head/Neck CTA 08/28/24 13:50 IMPRESSION: Normal CTA Head and neck with contrast. Electronically Signed: Deric Lockwood MD at 14:18 EST , ADDENDUM: 08/28/24 1426 IMPRESSION: Normal CTA Head and neck with contrast. N.B. : The above Results were Read Back by Deric Lockwood MD to Usman Barrientos MD, and understanding confirmed on 08/28/2024 14:20:04 (ET). Electronically Signed: Deric Lockwood MD at 14:18 EST , D/C Instructions Discharge Diet: 2000 mg Sodium Diet Weight Bearing Status: Weight bearing as tolerated Call your doctor if you observe: Fever of 101 or Higher, Coldness, Increased Pain, Numbness or Tingling, Change in Color, Inability to urinate, Inability to have a bowel movement, Shortness of breath, Dizziness, Fainting spells, Swelling in the ankles, Chest pain, Prolonged hiccupping, Increased palpitations (irregular heartbeat) and Calf discomfort DC O2, CPAP, BIPAP Needs Home O2 Discharge instructions: No When: IN 2 WEEKS Meaningful Use Info Meaningful Use Meaningful Use Diagnoses (Choose all that apply): None applicable Ischemic Stroke Statin Dosing Therapy Reference: STATIN DOSE THERAPY REFERENCE: * Patients > 75 years receive moderate or high dose statin therapy. * Patients 75 years or YOUNGER should receive HIGH intensity statin dose unless contraindicated. You will be required to document reason for non-treatment if statin daily dose does not meet guidelines. HIGH DOSE STATIN THERAPY DAILY Atorvastatin > than or = to 40 mg Rosuvastatin > than or = to 20 mg Amlodipine + Atorvastatin > than or = to 2.5/40 mg Ezetimibe + Simvastatin 10/80 mg Simvastatin 80mg Discharge Plan Admission Admit Date/Time: 08/28/24 14:56 Primary Reason for Your Visit: Near syncope Attending Provider: Davion Rodriguez Primary Care Provider: BRIDGETT ODEN Consulting Providers: Thea Valdez Instructions Additional Instructions / Restrictions: Follow-up with the [facility] for Discharge Orders/Prescriptions Prescriptions: Continued tamsulosin 0.4 MG capsule 0.4 mg PO DAILY Patient Comments: Xarelto 10 MG tablet 10 mg PO DAILY@0600 Qty: 15 0RF cholecalciferol (vitamin D3) [Vitamin D3] 25 mcg (1,000 unit) capsule 25 mcg PO DAILY Referrals / Follow Up: BRIDGETT ODEN [Other] BRIDGETT ODEN [Other] Disposition Disposition (needs filled in before D/C Order can be placed): Home, Self Care Charges/Coding Visit Charges Inpatient E&M: 58130 Disch Hosp >30min
[2024-08-29 10:36] VITALS: BP 141/86; PULSE 73; RESP 18; TEMP 36.2; O2SAT 92
== END 2024-08-29 11:28 | disposition home or self-care (01) | DRG 149 ==
LOC: ED 14:49 → PCU 15:06
PROVIDERS: Admitting Provider Internal Medicine; Emergency Provider Emergency Medicine; Visit Provider Internal Medicine
DX: H81.4 Vertigo of central origin (principal); I10 Essential (primary) hypertension; N40.0 Benign prostatic hyperplasia without lower urinary tract symptoms; R55 Syncope and collapse; Z86.73 Personal history of transient ischemic attack (TIA), and cerebral infarction without residual deficits; Z79.899 Other long term (current) drug therapy; Z79.01 Long term (current) use of anticoagulants; Z96.649 Presence of unspecified artificial hip joint; Z96.659 Presence of unspecified artificial knee joint
CPT/HCPCS: 36415; 70450; 70496; 70498; 80048; 80053; 80076; 82962; 83735; 84100; 84443; 84484; 85025; 85610; 85730; 93005; 93880; 97162; 97166; 99285; Q9967; A4216; J2405